=== PATIENT | female | born 1935 | race African-American/Black ===

== ENCOUNTER 2018-01-28 13:59 | Inpatient (IN) | payer OTHER ==
[~2018-01-28] VITALS: Ht 149.9 cm; Wt 46.7 kg
[~2018-01-28 13:59] MED LIST: ASPIRIN EC325 M2 PO; DOCUSATE SODIU100 M3 PO; LOSARTAN POTASS50 M1 PO; POLYETHYLENE G255 GM PO; SENOKOT8.6 M2 PO; VITAMIN B-121000 MC3 PO; VITAMIN D2000 UNIT PO
[2018-01-28 14:23] LABS: HEMATOCRIT 20.4 % (37-47); MEAN CORPUSCULAR HGB CONC 33.5 G/DL (33.0-37.0); MEAN CORPUSCULAR VOLUME 104.5 FL (81.0-99.0); MEAN PLATELET VOLUME 9.3 FL (7.4-10.4); PLATELET COUNT 240 /CUMM (130-400); RBC DISTRIBUTION WIDTH 25.2 % (11.5-14.5); RED BLOOD CELL CT 1.95 /CUMM (4.20-5.40); WHITE BLOOD CELL COUNT 2.2 /CUMM (4.8-10.8)
[2018-01-28 14:29] LABS: PT 13.2 SEC (9.4-12.5); PTT 29 SEC (25-37)
--- NOTE | 2018-01-28 14:52 | RADIOLOGY REPORT ---
EXAMINATION: PORTABLE CHEST 1 VIEW CLINICAL INFORMATION: Short of breath. COMPARISON: 01/12/2017. TECHNIQUE: Portable frontal view of the chest was obtained. FINDINGS: Lungs are hyperinflated with mild chronic appearing reticular markings again seen bilaterally. I do not appreciate any superimposed focal infiltrate, effusion, edema, or pneumothorax. Cardiac silhouette remains prominent but unchanged. Vascular calcification seen in the aorta. No acute bony abnormality. IMPRESSION: Hyperinflated with chronic appearing reticular markings similar to the prior study.
--- NOTE | 2018-01-28 15:35 | ED GENERAL ADULT ---
History of Present Illness General Chief Complaint: General Adult Stated Complaint: SENT BY FOR ABNORMAL LABS Source: patient, old records, covering MD Exam Limitations: no limitations Vital Signs & Intake/Output Vital Signs & Intake/Output Vital Signs Date Time Temp Pulse Resp B/P B/P Pulse O2 O2 Flow FiO2 Mean Ox Delivery Rate 01/31 1431 97.5 68 18 150/60 98 Room Air ED Intake and Output 02/01 0000 01/31 1200 Intake Total 10 Output Total Balance 10 Intake, IV 10 Intake, Oral 0 Patient 103 lb Weight Allergies Coded Allergies: NO KNOWN ALLERGIES (03/29/12) NKA PER ANTIBIOTIC ORDER SHEET Reconcile Medications Acetaminophen (Tylenol) (Unknown Strength) TABLET 650 PO Q6 PRN PAIN ( Reported) Aspirin (Ecotrin*) 325 MG TABLET.DR 1 TAB PO DAILY HEART/BLOOD (Reported) Docusate Sodium 100 MG CAPSULE 1 CAP PO DAILY STOOL SOFTENER (Reported) Ferrous Sulfate (IRON) 325 MG (65 MG IRON) TABLET 1 TAB PO EOD SUPPLEMENT ( Reported) Losartan Potassium 50 MG TABLET 1 TAB PO DAILY BP (Reported) Polyethylene Glycol 3350 17 GRAM/DOSE POWDER 17 GM PO PRN GI (Reported) Sennosides (Senokot) 8.6 MG TABLET 1 TAB PO DAILY GI (Reported) Triage Note: 82 YO FEMALE SENT TO ER BY FOR ABNORMAL LABS, PT AND DAUGHTER UNSURE OF WHAT LABS WERE ABNORMAL. STATES HX OF ANEMIA. PT C/O WEAKESS/LIGHTHEADED. PT DENIES CHETS PAIN. PT +SOB, PER DAUGHTER "THATS NORMAL FOR HER" Triage Nurses Notes Reviewed? yes Onset: Gradual Duration: day(s):, continues in ED, getting worse, waxing and waning Severity: severe HPI: Patient presents for evaluation of a severe anemia. Patient states that she has been suffering from weakness and fatigue recently and blood tests done by her physician showed a low blood cell count. In addition to the weakness patient has experienced shortness of breath but this isn't unusual for her. Past History Travel History Traveled to [place] past 21 day No Medical History Any Pertinent Medical History? see below for history Neurological: NONE EENT: NONE Cardiovascular: hyperlipidemia Respiratory: NONE Gastrointestinal: GERD, CONSTIPATION Hepatic: NONE Renal: NONE Musculoskeletal: OSTEOPOROSIS Psychiatric: NONE Endocrine: NONE Surgical History Surgical History: none Psychosocial History What is your primary language Kana Martinez Tobacco Use: Never used Family History Hx Contributory? No Review of Systems Review of Systems Constitutional: Reports: no symptoms. EENTM: Reports: no symptoms. Respiratory: Reports: no symptoms. Cardiovascular: Reports: no symptoms. GI: Reports: no symptoms. Genitourinary: Reports: no symptoms. Musculoskeletal: Reports: no symptoms. Skin: Reports: no symptoms. Neurological/Psychological: Reports: no symptoms. Hematologic/Endocrine: Reports: no symptoms. Immunologic/Allergic: Reports: no symptoms. All Other Systems: Reviewed and Negative Physical Exam Physical Exam General Appearance: SEE BELOW Comments: Gen.: Well-nourished, well-developed, no acute respiratory distress. Thin. Head: Normocephalic, atraumatic. Eyes: Normal inspection bilaterally Ears: Normal inspection bilaterally Nose: Normal inspection Throat/mouth : Moist mucosa Neck: Supple, full range of motion, no goiter Heart: Regular rate and rhythm, no murmurs rubs or gallops Lungs: Clear to auscultation bilaterally with normal air entry Chest: Nontender Back: Normal range of motion Abdomen: Soft, nontender, nondistended, normal bowel sounds Extremities: Normal range of motion grossly, equal radial pulses, no cyanosis clubbing or edema Neurologic: Cranial nerves grossly intact, speech is clear Skin: warm and dry Psychiatric: Calm, cooperative, no apparent delusions or hallucinations Rectal examination: Deferred given the patient's recent GI evaluation Core Measures ACS in differential dx? No CVA/TIA Diagnosis: No Sepsis Present: No Sepsis Focused Exam Completed? No Progress Differential Diagnoses I considered the following diagnoses in my evaluation of the patient: GI bleeding, dietary deficiency such as iron deficiency or B vitamin deficiency, hematologic disease, renal disease Plan of Care: Orders Procedure Date/time Status Regular Diet 01/31 D Active PT Evaluate & Treat 01/31 UNK Active Discharge Patient 01/31 UNK Active Laboratory Tests 01/31/18 1246: Flow Cytometry Specimen Pending 01/31/18 1246: Leukemic Chromosome Anal Pending, Flow Cytometry Specimen Pending Initial ED EKG: none, NSR, rate (70), NO ACUTE st SEGMENT CHANGES Prior EKG: unchanged Comments: Patient's case discussed with Dr. Coulter covering for Dr. Hall. Departure Departure Disposition: STILL A PATIENT Condition: Stable Clinical Impression Primary Impression: Anemia Qualifiers: Anemia type: unspecified type Qualified Code: D64.9 - Anemia, unspecified Referrals: Isabel GUNDERSON,Sc[facility] Haskins (PCP/Family) Departure Forms: Customer Survey General Discharge Information Admission Note Spoke With: Yfn GUNDERSON,[place] Documentation of Exam: Documentation of any treatments & extenuating circumstances including Concerns Regarding Discharge (functional status, medication knowledge or non-compliance, living conditions, etc.) that warrant an admission rather than observation: Patient has an acute anemia of unclear cause. She now requires a blood transfusion to prevent onset of symptoms such as chest pain shortness of breath easy fatigability and generalized weakness. Since the cause of this patient's anemia is unclear it is difficult to predict if she will get better or get worse even after a blood transfusion. Given her advanced age and associated medical comorbidities I feel outpatient treatment would be risky as this could exacerbate chest pain or shortness of breath given her decreased oxygen carrying capacity. I feel that she would have great difficulty in compliance with outpatient treatment and could very well return in worse clinical condition. During her hospitalization I feel this patient should be transfused with blood and have repeat H&H to assess for response. GI consultation should be considered for the possibility of an occult GI bleed. Other causes of the patient's anemia such as hematologic disease or dietary considerations such as iron deficiency should be investigated and corrected. Given this patient's age her treatment and recovery will likely be prolonged. I feel she will require a multiple day hospitalization. Critical Care Note Critical Care Note Critical Care Time: 30-74 min
[2018-01-28] MEDS ORDERED: IRON325 M3 PO (16:27)
[2018-01-28] MEDS ORDERED: TYLENOL325 M1 PO (16:28)
--- NOTE | 2018-01-28 17:37 | History & Physical ---
Kenji GUNDERSON,Ben 01/28/18 6963: General Information and HPI MD Statement: I have seen and personally examined VASU AYON and documented this H&P. The patient is a 82 year old F who presented with a patient stated chief complaint of [abnormal labs]. Source of Information: patient, family, old records Exam Limitations: language barrier History of Present Illness: Patient is an 82-year-old female with past medical history of anemia, hyperlipidemia, GERD, constipation, internal hemorrhoids, osteoporosis presenting this admission for evaluation of anemia after being sent in by her primary care physician. Patient does not speak Kosovan and her daughter was present at the time of this interview. Patient's daughter reports that patient has had a history of anemia. Reports patient has been feeling more fatigued lately and has been short of breath and lightheaded. Patient denies any chest pain. Reports numbness and tingling in her hands and feet and feeling unsteady on her feet. States that this has been ongoing for the past 3 years however daughter reports that she is just learning of this now. Denies any bright red blood per rectum, melena, hematemesis, hematuria, epistaxis. Denies easy bruising or bleeding. Patient reports poor appetite and she feels that food gets stuck in her throat and per daughter has a history of gastritis. Records reveal that patient had an EGD with Dr. Slaughter which revealed a normal gastric mucosa and small hiatal hernia. Daughter notes that they have been supplementing the patient's diet with ensure or boost and she has been taking iron supplements over the past 3 months. Of note patient has a history of internal hemorrhoids and hemorrhoidectomy in 2011. Daughter reports the patient has chronic constipation and has been alternating between multiple stool softeners. Reports patient has a history of anemia since she was young. Of note this is her first transfusion. Patient's daughter states she herself also has anemia. Reports that she was told it was due to iron deficiency. Patient patient's daughter states that her last colonoscopy was a few years ago and was reportedly normal. Patient in the ED was type and crossed and consented and given 1 PRBC transfusion. Allergies/Medications Allergies: Coded Allergies: NO KNOWN ALLERGIES (03/29/12) NKA PER ANTIBIOTIC ORDER SHEET Home Med list Acetaminophen (Tylenol) (Unknown Strength) TABLET (Unknown Dose) PO PRN PAIN (Reported) Aspirin (Ecotrin*) 325 MG TABLET.DR 1 TAB PO DAILY HEART/BLOOD (Reported) Cholecalciferol (Vitamin D3) (Vitamin D) (Unknown Strength) CAPSULE (Unknown Dose) PO DAILY SUPPLEMENT (Reported) Cyanocobalamin (Vitamin B-12) (Unknown Strength) TABLET (Unknown Dose) PO DAILY SUPPLEMENT (Reported) Docusate Sodium 100 MG CAPSULE 1 CAP PO DAILY STOOL SOFTENER (Reported) Ferrous Sulfate (IRON) 325 MG (65 MG IRON) TABLET 1 TAB PO EOD SUPPLEMENT ( Reported) Losartan Potassium 50 MG TABLET 1 TAB PO DAILY BP (Reported) Polyethylene Glycol 3350 17 GRAM/DOSE POWDER 17 GM PO PRN GI (Reported) Sennosides (Senokot) 8.6 MG TABLET 1 TAB PO DAILY GI (Reported) Past History Travel History Traveled to [place] past 21 day No Medical History Neurological: NONE EENT: NONE Cardiovascular: hyperlipidemia Respiratory: NONE Gastrointestinal: GERD, CONSTIPATION Hepatic: NONE Renal: NONE Musculoskeletal: OSTEOPOROSIS Psychiatric: NONE Endocrine: NONE Surgical History Surgical History: none Review of Systems Review of Systems Constitutional: Reports: chills, weakness. EENTM: Reports: no symptoms. Cardiovascular: Reports: no symptoms. Respiratory: Reports: short of breath. GI: Reports: bloating, constipation. Denies: abdominal pain, diarrhea, melena, nausea, bloody stool, vomiting. Genitourinary: Reports: no symptoms. Musculoskeletal: Reports: back pain. Skin: Reports: no symptoms. Neurological/Psychological: Reports: numbness, paresthesia, tingling. Hematologic/Endocrine: Reports: no symptoms. Immunologic/Allergic: Reports: no symptoms. Exam & Diagnostic Data Last 24 Hrs of Vital Signs/I&O Vital Signs Date Time Temp Pulse Resp B/P B/P Pulse O2 O2 Flow FiO2 Mean Ox Delivery Rate 01/28 1817 98.8 01/28 1757 99.0 65 16 125/59 99 Room Air 01/28 1726 97.9 65 16 132/63 98 Room Air 01/28 1404 98.2 75 18 135/67 98 Room Air Intake & Output 01/28 1600 01/28 0800 08 0000 Intake Total Output Total Balance Patient 103 lb Weight Weight Reported by Patient Measurement Method Physical Exam General Appearance Alert, Oriented X3, Cooperative, No Acute Distress Skin No Rashes, No Breakdown, No Significant Lesion Skin Temp/Moisture Exam: Warm/Dry Sepsis Skin Exam (color): Normal for Ethnicity HEENT Atraumatic, PERRLA, EOMI, Mucous Membr. moist/pink, +conjunctival pallor Cardiovascular Regular Rate, Normal S1, Normal S2 Lungs Clear to Auscultation, Normal Air Movement Abdomen Normal Bowel Sounds, Soft, No Tenderness Neurological Normal Speech, Strength at 5/5 X4 Ext, Normal Tone, Sensation Intact, Cranial Nerves 3-12 NL Extremities No Clubbing, No Cyanosis, No Edema, Normal Pulses, No Tenderness/ Swelling Vascular Normal Pulses, Pulses Symmetrical Last 24 Hrs of Labs/Froylan: Laboratory Tests 01/28/18 1411: Anion Gap 6, Estimated GFR > 60, BUN/Creatinine Ratio 18.0, Glucose 88, Calcium 9.3, Total Bilirubin 1.2, AST 25, ALT 30, Alkaline Phosphatase 29, Troponin I < 0.01, Total Protein 6.8, Albumin 4.2, Globulin 2.6, Albumin/Globulin Ratio 1.6, PT 13.2 H, INR 1.21 H, APTT 29, CBC w Diff MAN DIFF ORDERED, RBC 1.95 L, MCV 104.5 H, MCH 35.0 H, MCHC 33.5, RDW 25.2 H, MPV 9.3, Segmented Neutrophils 46 , Band Neutrophils 2, Lymphocytes 40, Monocytes 7, Eosinophils 3, Basophils 2, Platelet Estimate VERIFIED BY SMEAR, Polychromasia 1+, Hypochromic-Microcytic 2+ , Poikilocytosis 1+, Basophilic Stippling 1+, Anisocytosis 2+, Macrocytic Cells 1+, Ovalocytes 1+ Assessment/Plan Assessment: Patient is an 82-year-old female with past medical history significant for anemia and internal hemorrhoids presenting this admission with abnormal lab values significant for anemia. The etiology is unclear at this time however may be multifactorial and may include iron deficiency anemia secondary to GI bleeding, malabsorption, nutritional deficiency. Patient's labs reveal macrocytic anemia which is indicative of possible folic acid or B12 deficiency. Of note patient does have some neurological symptoms including paresthesias and gait instability. Further evaluation and treatment is warranted at this time. Patient will be admitted to the general medicine floor. Plan: Admit to general med Vitals every shift 1 PRBC transfusion Monitor H&H with posttransfusion CBC today and CBC in a.m. Guaiac all stools Iron panel B12 and folate Peripheral smear Consider GI consult in a.m. Nutrition consult Code: Full code Diet: Regular DVT: Mechanical only in setting of severe anemia As Ranked By This Provider Problem List: 1. Anemia Qualifiers Anemia type: unspecified type Qualified Code: D64.9 - Anemia, unspecified Core Measures/Misc (03/12) Acute Coronary Syndrome ACS Diagnosis: No Congestive Heart Failure Congestive Heart Failure Diagnosis No Cerebrovascular Accident CVA/TIA Diagnosis: No VTE (View Protocol) VTE Risk Factors Age>40 No Mechanical VTE Prophylaxis d/t N/A MechProphylax Ordered No VTE Pharm Prophylaxis d/t Other (Severe Anemia) Sepsis (View protocol) Sepsis Present: No If YES complete Sepsis Event Note If YES complete Sepsis Event Note Isabel GUNDERSON,[facility] 01/29/18 1023: Core Measures/Misc (03/12) Sepsis (View protocol) If YES complete Sepsis Event Note If YES complete Sepsis Event Note Attending MD Review Statement Attending Statement Attending MD Statement: examined this patient, discuss w/resident/PA/HOUSE WIRER HELPER, agreed w/resident/PA/HOUSE WIRER HELPER, discussed with family, reviewed EMR data (avail), discussed with nursing, discussed with case mgmt, reviewed images, amended to note Attending Assessment/Plan: Pt with Esophageal dysmotility Osteoporosis s/p boniva for more than 5 yrs now on vit d and calcium and wt bearing activity, Gastroesophageal reflux disease without esophagitis, Hyperlipidemia, unspecified on diet control does not want statin, Irritable bowel syndrome with both constipation and diarrhea, Vitamin D deficiency, Essential hypertension, Cervical arthritis, Hyperlipidemia, unspecified on diet control does not want statin, Irritable bowel syndrome with both constipation and diarrhea, Lung nodule less than 5 mm non smoker hence prob benign pt wishes clinical follow up, Venous insufficiency (chronic) (peripheral) rt more than left, Hemorrhoids, Primary osteoarthritis of both hips with chronic anemia now comes with Sig symptomatic anemia Wt loss chronic with ibs features Chronic constipation now had no bm for 5 day, hemerroids Fatigue Gait imbalance with peripheral neuropathy features with no sig vit def Previous lung nodule and pelvic gonadal vein congestion (will consider ct abd) REC GI eval and Heme eval Please call Dr. Hairston Rectal exam Dulcolax supp, miralax, today and if no bm can consider one dose of lactulose Head ct with recent gait imbalance etc Ct abd and pelvis with ivc to eval for any malignancy Will follow
[2018-01-28 22:01] VITALS: BP 120/60
[2018-01-29 02:52] VITALS: BP 118/52
[2018-01-29 03:43] LABS: ABSOLUTE BASOPHIL COUNT 0 /CUMM (0.0-0.2); ABSOLUTE EOSINOPHIL COUNT 0.1 /CUMM (0.0-0.7); ABSOLUTE GRANULOCYTE CT 1.2 /CUMM (1.4-6.5); WHITE BLOOD CELL COUNT 2.8 /CUMM (4.8-10.8)
[2018-01-29 04:51] LABS: ABSOLUTE LYMPH COUNT 1.2 /CUMM (1.2-3.4); ABSOLUTE MONOCYTE COUNT 0.3 /CUMM (0.10-0.60); BASOPHIL % 0 % (0.0-2.0); EOSINOPHIL % 2.4 % (0-5); GRANULOCYTE % 43.3 % (42.2-75.2); MEAN CORPUSCULAR HGB CONC 33.3 G/DL (33.0-37.0); MEAN PLATELET VOLUME 8.4 FL (7.4-10.4); PLATELET COUNT 190 /CUMM (130-400); RBC DISTRIBUTION WIDTH 27.9 % (11.5-14.5)
[2018-01-29 04:58] LABS: RED BLOOD CELL CT 2.75 /CUMM (4.20-5.40)
[2018-01-29 04:59] LABS: HEMATOCRIT 26.4 % (37-47)
[2018-01-29 07:17] VITALS: BP 128/60
--- NOTE | 2018-01-29 08:16 | PN- Housestaff ---
Kamran Toure 01/29/18 0812: Subjective Follow-up For: Normocytic normochromic anemia, Lower GI bleed secondary to hemorrhoid Complaints: no complaints Subjective: Patient seen and examined on chair. There was no overnight event. No distress. She did well overnight. There was no bowel movement. There is no history of any blood loss. He is optimistic to go home today. She denies weakness tiredness, fever chill, chest pain, shortness of breath, abdominal pain, diarrhea, loose motion. Review of Systems Constitutional: Reports: see HPI. Objective Last 24 Hrs of Vital Signs/I&O Vital Signs Date Time Temp Pulse Resp B/P B/P Pulse O2 O2 Flow FiO2 Mean Ox Delivery Rate 01/29 0717 98.0 58 20 128/60 99 Room Air 01/29 0252 98.1 62 20 118/52 96 Nasal 2.0L Cannula 01/28 2201 98.0 63 18 120/60 98 Room Air / 1817 98.8 01/28 1757 99.0 65 16 125/59 99 Room Air 01/28 1726 97.9 65 16 132/63 98 Room Air 01/28 1404 98.2 75 18 135/67 98 Room Air Intake & Output 01/29 1600 /06 0800 08/ 0000 Intake Total 120 600 Output Total 1000 300 Balance -1000 -180 600 Intake, Oral 120 600 Output, Urine 1000 300 Patient 103 lb Weight Physical Exam General Appearance: Oriented X3, Cooperative, No Acute Distress Assessment/Plan Assessment: 82-year-old lady with past medical history of esophageal dysmotility, osteoporosis status post Boniva for more than 5 years, GERD, hyperlipidemia, irritable bowel syndrome with both constipation and diarrhea, cervical arthritis , vitamin D deficiency, essential hypertension, 5 mm lung nodules, external hemorrhoid, primary osteoarthritis of both hips, anemia of chronic disease presented to the emergency department with complaint of weakness and tiredness. On examination she was pallor, [place]ber[place] and Liza nodules on his both hands fingers. Her labs are significant for low H&H at the time of presentation at was 6.8/20.4 up to 2 blood transfusion his Hb is 8.8, decreased WBC count, INR is normal, saturation is normal on 2 L of oxygen, B12 and folate level is normal .vitally stable. Problems list: -Normocytic normochromic anemia now -External hemorrhoids -Peripheral neuropathy irritable bowel syndrome with constipation -Hemotological malignancy Plan: -She currently has normochromic normocytic anemia. But patient is taking B12 and folate and she also having peripheral neuropathy this reflects she might had macrocytic anemia due to B12 or folate deficiency because her MCV is on her upper limit of the normal. 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 We can consider myelodysplastic syndrome and can do workup for after discussing with law researcher. -This anemia may be due to chronic disease because she having many comorbidities. Her previous colonoscopy 5 year back were normal. There was no focus of bleed. -GI consult placed -On on rectal exam there was no blood and there was no stool, there was external hemorrhoid but there was no focus of active bleed. -Hematology consultation placed. Waiting for product management consultant. -Head CT ordered -CT abdomen and pelvis IVC for evaluation of any malignancy ordered -GI/DVT prophylaxis -Advance diet -Patient conseled. -Case discussed with law researcher he assured that he will see patient tomorrow and he think that he would work for myelodysplastic syndrome. Problem List: 1. Dizziness 2. Anemia Pain Ratin Pain Location: N/A Pain Goal: Remain pain free Pain Plan: N/A Tomorrow's Labs & Rationales: MARKO Hall MD,[facility] 01/29/18 1033: Attending MD Review Statement Attending Statement Attending MD Statement: examined this patient, discuss w/resident/PA/DELIVERY COORDINATOR, agreed w/resident/PA/DELIVERY COORDINATOR, discussed with family, reviewed EMR data (avail), discussed with nursing, discussed with case mgmt, reviewed images, amended to note Attending Assessment/Plan: Full note per dope house operator helper General Appearance Alert, Oriented X3, Cooperative, No Acute Distress Skin No Rashes, No Breakdown, No Significant Lesion Skin Temp/Moisture Exam: Warm/Dry Sepsis Skin Exam (color): Normal for Ethnicity HEENT Atraumatic, PERRLA, EOMI, Mucous Membr. moist/pink, +conjunctival pallor Cardiovascular Regular Rate, Normal S1, Normal S2 Lungs Clear to Auscultation, Normal Air Movement Abdomen Normal Bowel Sounds, Soft, No Tenderness Neurological Normal Speech, Strength at 5/5 X4 Ext, Normal Tone, Sensation Intact, Cranial Nerves 3-12 NL Extremities No Clubbing, No Cyanosis, No Edema, Normal Pulses, No Tenderness/ Swelling Vascular Normal Pulses, Pulses Symmetrical Pt with Esophageal dysmotility Osteoporosis s/p boniva for more than 5 yrs now on vit d and calcium and wt bearing activity, Gastroesophageal reflux disease without esophagitis, Hyperlipidemia, unspecified on diet control does not want statin, Irritable bowel syndrome with both constipation and diarrhea, Vitamin D deficiency, Essential hypertension, Cervical arthritis, Hyperlipidemia, unspecified on diet control does not want statin, Irritable bowel syndrome with both constipation and diarrhea, Lung nodule less than 5 mm non smoker hence prob benign pt wishes clinical follow up, Venous insufficiency (chronic) (peripheral) rt more than left, Hemorrhoids, Primary osteoarthritis of both hips with chronic anemia now comes with Sig symptomatic anemia Wt loss chronic with ibs features Chronic constipation now had no bm for 5 day, hemerroids Fatigue Gait imbalance with peripheral neuropathy features with no sig vit def Previous lung nodule and pelvic gonadal vein congestion (will consider ct abd) REC GI eval and Heme eval Please call Dr. Hairston Rectal exam Dulcolax supp, miralax, today and if no bm can consider one dose of lactulose Head ct with recent gait imbalance etc Ct abd and pelvis with ivc to eval for any malignancy Will follow
[2018-01-29 13:59] VITALS: BP 100/60
--- NOTE | 2018-01-29 15:56 | CT SCAN REPORT ---
EXAMINATION: CT HEAD WITHOUT AND WITH CONTRAST CLINICAL INFORMATION: Gait imbalance. History of lung mass and weight loss. Assess for mass versus NPH versus cortical atrophy. COMPARISON: None. TECHNIQUE: Contiguous axial imaging was performed from the skull base to vertex before and after the administration of 95 mL of Optiray 320 intravenous contrast. DLP: 1094.62 mGy-cm FINDINGS: There is no evidence of acute intracranial hemorrhage or territorial infarction. No abnormal mass effect or midline shift is seen. Coughlin to white matter differentiation is well preserved. No extra-axial fluid collections are identified. No masses or abnormal enhancement are demonstrated. There have been bilateral lens extractions.. The ventricles and sulci commensurately prominent consistent with moderate diffuse volume loss. There are areas of low attenuation in the periventricular and subcortical white matter, consistent with chronic microvascular ischemic changes. The osseous structures and soft tissues are normal. The mastoid air cells and visualized portions of the paranasal sinuses are well aerated. IMPRESSION: 1. There are no acute bleeds or territorial infarcts. 2. There are no masses or areas of abnormal enhancement. 3. There are chronic microvascular ischemic changes. There is diffuse volume loss.
--- NOTE | 2018-01-29 17:09 | CT SCAN REPORT ---
EXAMINATION: CT ABDOMEN AND PELVIS WITH CONTRAST CLINICAL INFORMATION: Weight loss. Previous lung nodule. COMPARISON: Abdomen ultrasound, 06/06/2013. Abdomen and pelvis CT, 04/12/2013 TECHNIQUE: Multidetector volumetric imaging was performed of the abdomen and pelvis following IV administration of 95 mL of Optiray 320 intravenous contrast. Sagittal and coronal reformatted images were obtained on the technologist's workstation. DLP: 253 mGy-cm FINDINGS: LUNG BASES: Cardiomegaly. Trace bilateral pleural effusions and mild bibasilar atelectasis. LIVER, GALLBLADDER, AND BILIARY TREE: Liver has normal size and contour. No focal hepatic lesion or intrahepatic bile duct dilatation. Intrahepatic IVC is dilated and hepatic veins are prominent, likely from elevated right-sided cardiac pressures. The gallbladder is unremarkable. PANCREAS: Unremarkable. SPLEEN: Unremarkable. ADRENAL GLANDS: Unremarkable. KIDNEYS AND URETERS: The kidneys are normal in size, shape, and attenuation. Small, 0.5 cm hypodense focus in the medial aspect of the left upper pole is likely a cyst but is too small for definitive characterization. No suspicious renal lesion, nephrolithiasis or hydronephrosis. BLADDER: The urinary bladder is well distended and has normal wall thickness. No bladder calculi. GASTROINTESTINAL TRACT: Stomach is unremarkable. Bowel loops are normal in caliber. No inflammation or obstruction along the gastrointestinal tract. No ascites or pneumoperitoneum. ABDOMINAL WALL: Unremarkable. LYMPH NODES: Normal. VASCULAR: Atherosclerosis of the abdominal aorta without aneurysm. Inferior vena cava and hepatic veins are prominent, likely from elevated right-sided cardiac pressures. Gonadal veins and parauterine veins are chronically dilated, consistent with venous valve incompetence. PELVIC VISCERA: The uterus is retroflexed. Prominent myometrial veins are seen. Trace amount of free fluid in the pelvic cul-de-sac. No pelvic mass. Multiple phleboliths within the lower pelvis. OSSEOUS STRUCTURES: Mild dextroscoliosis of the lumbar spine. Facet osteoarthritis of L4-L5 and L5-S1, and vacuum disc degenerative change at L5-S1. There is 0.4 cm of grade 1 anterolisthesis of L4 on L5. No suspicious bone lesions. IMPRESSION: - Cardiomegaly, trace bilateral pleural effusions and engorged inferior vena cava and hepatic veins (likely from elevated right-sided cardiac pressures. - No evidence of abdominal mass or lymphadenopathy. - Chronically dilated gonadal and parauterine veins -- indicative of venous valve incompetence.
--- NOTE | 2018-01-29 17:22 | Cons- Gastroenterology ---
General Information and HPI Consulting Request Date of Consult: 01/29/18 Requested By: oLndon Coulter MD Reason for Consult: Anemia. Constipation. Dysphagia. Source of Information: patient Exam Limitations: language barrier History of Present Illness: Ms. Garcia is an 82 year old female with a PMH significant for hyperlipidemia and osteoporosis who presented to yesterday after being sent in by her PCP for a transfusion after being noted to have a hgb of about 6.8 on routine blood work. Her daughter is at her bedside who was able to help with her history. She is without any GI complatins. She denies any abdominal pain with eating, heartburn or current dysphagia. She is also without any vomiting or hematemesis. She is constipated at baseline and this hasn't changed recently. She has been without any brbpr, melena or diarrhea. In the ER she was hemodynamically stable and afebrile. She was noted to have a macrocytic anemia for which she was tranfused with 2 units of PRBCs with approprite correction of her hgb and she had a ct scan of her abdomen that was negative for any obvious masses or a retroperitoneal hematoma. Since admission she has been hemodynamically stable and without overt GI bleeding. Allergies/Medications Allergies: Coded Allergies: NO KNOWN ALLERGIES (03/29/12) NKA PER ANTIBIOTIC ORDER SHEET Home Med List: Acetaminophen (Tylenol) (Unknown Strength) TABLET 650 PO Q6 PRN PAIN ( Reported) Aspirin (Ecotrin*) 325 MG TABLET.DR 1 TAB PO DAILY HEART/BLOOD (Reported) Docusate Sodium 100 MG CAPSULE 1 CAP PO DAILY STOOL SOFTENER (Reported) Ferrous Sulfate (IRON) 325 MG (65 MG IRON) TABLET 1 TAB PO EOD SUPPLEMENT ( Reported) Losartan Potassium 50 MG TABLET 1 TAB PO DAILY BP (Reported) Polyethylene Glycol 3350 17 GRAM/DOSE POWDER 17 GM PO PRN GI (Reported) Sennosides (Senokot) 8.6 MG TABLET 1 TAB PO DAILY GI (Reported) Current Medications: Current Medications Sig/Stephen Start time Last Medication Dose Route Stop Time Status Admin Acetaminophen 650 MG Q6P PRN 01/28 193 AC PO Acetaminophen 700 MG Q6P PRN 01/28 193 AC IV Bisacodyl 10 MG ONCE ONE 01/29 1215 DC 01/29 AR 01/29 1216 1302 Patient Medication 1 ED ONE ONE 01/29 1200 DC 01/29 Teaching ED 01/29 1201 1204 Polyethylene Glycol 17 GM DAILY 01/29 1208 AC PO Past History Travel History Traveled to [place] past 21 day No Medical History Blood Transfusion Hx: No Neurological: NONE EENT: NONE Cardiovascular: hyperlipidemia Respiratory: NONE Gastrointestinal: GERD, CONSTIPATION Hepatic: NONE Renal: NONE Musculoskeletal: OSTEOPOROSIS Psychiatric: NONE Endocrine: NONE Blood Disorders: anemia Cancer(s): NONE SILVERER/Reproductive: NONE Surgical History Surgical History: 1 Psychosocial History Where Do You Live? Home Services at Home: None Smoking Status: Never Smoked Review of Systems Review of Systems: Secondary to a lagnuage barrier a full 12 point review of systems was not obtained. Exam & Diagnostic Data Vital Signs and I&O Vital Signs Date Time Temp Pulse Resp B/P B/P Pulse O2 O2 Flow FiO2 Mean Ox Delivery Rate 01/29 0717 98.0 58 20 128/60 99 Room Air 01/29 0252 98.1 62 20 118/52 96 Nasal 2.0L Cannula 01/28 2201 98.0 63 18 120/60 98 Room Air 01/28 1817 98.8 01/28 1757 99.0 65 16 125/59 99 Room Air 01/28 1726 97.9 65 16 132/63 98 Room Air 01/28 1404 98.2 75 18 135/67 98 Room Air Intake & Output 01/29 1600 01/29 0400 01/28 1600 01/28 0400 01/27 1600 01/27 0400 Intake Total 120 600 Output Total 1300 Balance -1180 600 Intake, Oral 120 600 Output, Urine 1300 Patient 103 lb 103 lb Weight Weight Reported by Patient Measurement Method Physical Exam General Appearance: no apparent distress, alert, awake, comfortable, thin Head: atraumatic, normal appearance Eyes: Bilateral: normal appearance. Ears, Nose, Throat: normal pharynx, normal ENT inspection Neck: normal inspection, supple, full range of motion Respiratory: normal breath sounds, chest non-tender Cardiovascular: regular rate/rhythm Gastrointestinal: normal bowel sounds, soft, non-tender, no organomegaly Rectal: deferred Back: normal inspection Extremities: normal inspection, normal capillary refill, normal range of motion Neurologic/Psych: no motor/sensory deficits, awake, alert, oriented x 3 Skin: intact, normal color, warm/dry Results Pertinent Lab Results: Laboratory Tests 08/06 08/06 0600 0325 Chemistry Sodium (137 - 145 mmol/L) Cancelled 136 L Potassium (3.5 - 5.1 mmol/L) Cancelled 4.4 Chloride (98 - 107 mmol/L) Cancelled 104 Carbon Dioxide (22 - 30 mmol/L) Cancelled 30 Anion Gap (5 - 16) Cancelled 2 L BUN (7 - 17 mg/dL) Cancelled 11 Creatinine (0.5 - 1.0 mg/dL) Cancelled 0.5 Estimated GFR (>60 ml/min) > 60 BUN/Creatinine Ratio (7 - 25 %) Cancelled 22.0 Hematology CBC w Diff Cancelled MAN DIFF ORDERED WBC (4.8 - 10.8 /CUMM) Cancelled 2.8 L RBC (4.20 - 5.40 /CUMM) Cancelled 2.75 L Hgb (12.0 - 16.0 G/DL) Cancelled 8.8 L Hct (37 - 47 %) Cancelled 26.4 L MCV (81.0 - 99.0 FL) Cancelled 96.0 MCH (27.0 - 31.0 PG) Cancelled 32.0 H MCHC (33.0 - 37.0 G/DL) Cancelled 33.3 RDW (11.5 - 14.5 %) Cancelled 27.9 H Plt Count (130 - 400 /CUMM) Cancelled 190 MPV (7.4 - 10.4 FL) Cancelled 8.4 Gran % (42.2 - 75.2 %) 43.3 Lymphocytes % (20.5 - 51.1 %) 44.5 Monocytes % (1.7 - 9.3 %) 9.8 H Eosinophils % (0 - 5 %) 2.4 Basophils % (0.0 - 2.0 %) 0 Absolute Granulocytes (1.4 - 6.5 /CUMM) 1.2 L Absolute Lymphocytes (1.2 - 3.4 /CUMM) 1.2 Absolute Monocytes (0.10 - 0.60 /CUMM) 0.3 Absolute Eosinophils (0.0 - 0.7 /CUMM) 0.1 Absolute Basophils (0.0 - 0.2 /CUMM) 0 Platelet Estimate (ADEQUATE) ADEQUATE Polychromasia 1+ Hypochromic-Microcytic 1+ Anisocytosis 1+ 01/29 01/28 01/28 0000 2355 1411 Chemistry Sodium (137 - 145 mmol/L) 138 Potassium (3.5 - 5.1 mmol/L) 4.1 Chloride (98 - 107 mmol/L) 103 Carbon Dioxide (22 - 30 mmol/L) 29 Anion Gap (5 - 16) 6 BUN (7 - 17 mg/dL) 9 Creatinine (0.5 - 1.0 mg/dL) 0.5 Estimated GFR (>60 ml/min) > 60 BUN/Creatinine Ratio (7 - 25 %) 18.0 Glucose (65 - 99 mg/dL) 88 Calcium (8.4 - 10.2 mg/dL) 9.3 Iron (37 - 170 ug/dL) 266 H TIBC (265 - 497 ug/dL) 301 Ferritin (11.1 - 264 ng/mL) 167.0 Total Bilirubin (0.2 - 1.3 mg/dL) 1.2 AST (14 - 36 U/L) 25 ALT (9 - 52 U/L) 30 Alkaline Phosphatase (<127 U/L) 29 Lactate Dehydrogenase (313 - 618 U/L) 563 Troponin I (< 0.11 ng/ml) < 0.01 Total Protein (6.3 - 8.2 g/dL) 6.8 Albumin (3.5 - 5.0 g/dL) 4.2 Globulin (1.9 - 4.2 gm/dL) 2.6 Albumin/Globulin Ratio (1.1 - 2.2 %) 1.6 Vitamin B12 (239 - 931 pg/mL) > 1000 H Folate (2.76 - 20.0 ng/mL) > 20.0 H Coagulation PT (9.4 - 12.5 SEC) 13.2 H INR (0.90 - 1.19) 1.21 H APTT (25 - 37 SEC) 29 Hematology CBC w Diff Cancelled Cancelled MAN DIFF ORDERED WBC (4.8 - 10.8 /CUMM) Cancelled Cancelled 2.2 L RBC (4.20 - 5.40 /CUMM) Cancelled Cancelled 1.95 L Hgb (12.0 - 16.0 G/DL) Cancelled Cancelled 6.8 *L Hct (37 - 47 %) Cancelled Cancelled 20.4 L MCV (81.0 - 99.0 FL) Cancelled Cancelled 104.5 H MCH (27.0 - 31.0 PG) Cancelled Cancelled 35.0 H MCHC (33.0 - 37.0 G/DL) Cancelled Cancelled 33.5 RDW (11.5 - 14.5 %) Cancelled Cancelled 25.2 H Plt Count (130 - 400 /CUMM) Cancelled Cancelled 240 MPV (7.4 - 10.4 FL) Cancelled Cancelled 9.3 Segmented Neutrophils (42.2 - 75.2 %) 46 Band Neutrophils (0.0 - 5.0 %) 2 Lymphocytes (20.5 - 51.1 %) 40 Monocytes (1.7 - 9.3 %) 7 Eosinophils (0 - 5.0 %) 3 Basophils (0.0 - 2.0 %) 2 Platelet Estimate (ADEQUATE) VERIFIED BY SMEAR Polychromasia 1+ Hypochromic-Microcytic 2+ Poikilocytosis 1+ Basophilic Stippling 1+ Anisocytosis 2+ Macrocytic Cells 1+ Ovalocytes 1+ Retic Count (0.5 - 2.0 %) 1.67 Miscellaneous Ref Lab Test Result Cancelled 01/28 1404 Hematology Haptoglobin Pending Imaging/Other Studies: DATE OF SERVICE: 07/17/2012 PROCEDURE: Upper endoscopy with biopsies. CYBER SECURITY INSTRUCTOR: Dr. Oseas Slaughter. ASA: Class II. INDICATIONS: Dysphagia. MEDICATIONS RECEIVED: As per anesthesiologist. PATIENT TOLERANCE: Good. COMPLICATIONS: None. EXTENT REAWCHED: Second portion of the duodenum. PROCEDURE: After getting written informed consent the patient was placed in the left lateral decubitus position with pulse oximetry, cardiac monitoring, and supplemental oxygen given. A bite block was inserted and IV sedation was given until the desired effect was achieved. A high definition upper Olympus endoscope was then inserted into the mouth and advanced to the second portion of the duodenum with little difficulty. Retroflexed views and photo documentation were obtained. FINDINGS: Esophagus: The esophageal mucosa was grossly normal in appearance. There was a normal-appearing Z-line at 36 cm from the incisors. There were no esophageal strictures, erosions or masses appreciated. Random biopsies were obtained from the Z-line and from the lower esophageal mucosa with the cold biopsy forceps and sent to pathology for further evaluation. Stomach: The gastric mucosa was grossly normal in appearance. Distension and peristalsis of the stomach appeared normal. There were no ulcers, erosions or masses appreciated. Retroflexed views revealed a small hiatal hernia. Biopsies were obtained from the antrum with the cold biopsy forceps and sent to pathology for further evaluation. Duodenum: The duodenal bulb, sweep and folds were grossly normal in appearance. IMPRESSION: Small hiatal hernia. Normal GE junction and esophageal mucosa, status post random biopsies. Normal gastric mucosa, status post biopsies. SERVICE DATE: 01/29/18- EXAM TYPE: CAT - CT ABD & PELVIS W IV CONTRAST EXAMINATION: CT ABDOMEN AND PELVIS WITH CONTRAST CLINICAL INFORMATION: Weight loss. Previous lung nodule. COMPARISON: Abdomen ultrasound, 06/06/2013. Abdomen and pelvis CT, 04/12/2013 TECHNIQUE: Multidetector volumetric imaging was performed of the abdomen and pelvis following IV administration of 95 mL of Optiray 320 intravenous contrast. Sagittal and coronal reformatted images were obtained on the technologist's workstation. DLP: 253 mGy-cm FINDINGS: LUNG BASES: Cardiomegaly. Trace bilateral pleural effusions and mild bibasilar atelectasis. LIVER, GALLBLADDER, AND BILIARY TREE: Liver has normal size and contour. No focal hepatic lesion or intrahepatic bile duct dilatation. Intrahepatic IVC is dilated and hepatic veins are prominent, likely from elevated right-sided cardiac pressures. The gallbladder is unremarkable. PANCREAS: Unremarkable. SPLEEN: Unremarkable. ADRENAL GLANDS: Unremarkable. KIDNEYS AND URETERS: The kidneys are normal in size, shape, and attenuation. Small, 0.5 cm hypodense focus in the medial aspect of the left upper pole is likely a cyst but is too small for definitive characterization. No suspicious renal lesion, nephrolithiasis or hydronephrosis. BLADDER: The urinary bladder is well distended and has normal wall thickness. No bladder calculi. GASTROINTESTINAL TRACT: Stomach is unremarkable. Bowel loops are normal in caliber. No inflammation or obstruction along the gastrointestinal tract. No ascites or pneumoperitoneum. ABDOMINAL WALL: Unremarkable. LYMPH NODES: Normal. VASCULAR: Atherosclerosis of the abdominal aorta without aneurysm. Inferior vena cava and hepatic veins are prominent, likely from elevated right-sided cardiac pressures. Gonadal veins and parauterine veins are chronically dilated, consistent with venous valve incompetence. PELVIC VISCERA: The uterus is retroflexed. Prominent myometrial veins are seen. Trace amount of free fluid in the pelvic cul-de-sac. No pelvic mass. Multiple phleboliths within the lower pelvis. OSSEOUS STRUCTURES: Mild dextroscoliosis of the lumbar spine. Facet osteoarthritis of L4-L5 and L5-S1, and vacuum disc degenerative change at L5-S1. There is 0.4 cm of grade 1 anterolisthesis of L4 on L5. No suspicious bone lesions. IMPRESSION: - Cardiomegaly, trace bilateral pleural effusions and engorged inferior vena cava and hepatic veins (likely from elevated right-sided cardiac pressures. - No evidence of abdominal mass or lymphadenopathy. - Chronically dilated gonadal and parauterine veins -- indicative of venous valve incompetence. Assessment/Plan Assessment/Recommendations: Assessment: Ms. Garcia is an 82 year old female admitted with a hgb of 6.8 of uncertain etiology, but she is without overt GI bleeding and she also isn't iron deficient or b12 or folate deficient on lab work. She also had a ct scan of her abdomen and pelvis which didn't reveal and bowel wall abnormalities or obvious masses within her bowel or stomach which makes a GI source of anemia less likely when taken in conjunction with the lab work. She had an endoscopy about 5 years ago which was done for dysphagia she had at that time which only showed a hiatal hernia and was otherwise unremarkable and while it may ultimately be necessary to repeat this along with repeating a colonoscopy which she apparently hasn't had in over 10 years I don't feel that either test needs to be pursued as an inpatient considering she is without any overt gi bleeding. As she is not iron deficient though and is currently being evaluated by hematology it may not be necessary to repeat at all if her anemia is deemed to be secondary to in infiltrative bone marrow process. Recommendations: 1. Diet as tolerated. 2. Follow daily CBC and if hgb remains stable would consider discharge in the am with plan to pursue a repeat endosocpic work up as an outpatient if the hematological work up is negative. 3. Follow up haptoglobin and hematology recommendations. 4. Notify GI for signs of overt GI bleeding. As she has no acute GI issues which require inpatient work up I will sign off at this time and ask that GI be reconsulte with any new GI issues which may arise on this hospitalization. Problem List: 1. Anemia 2. Dizziness Copies To: Isabel GUNDERSON,Scout Arora. Consult Acknowledgment - Thank you for your consult request.
[2018-01-29 21:45] VITALS: BP 126/76
[2018-01-30 06:20] VITALS: BP 146/68
--- NOTE | 2018-01-30 07:28 | Cons- Hematology ---
General Information and HPI Consulting Request Date of Consult: 01/30/18 Requested By: Isabel GUNDERSON,Scout Haskins Reason for Consult: anemia, leukopenia Source of Information: patient, family, old records Exam Limitations: language barrier History of Present Illness: Ms. Garcia is an 82-year-old Lao speaking female with osteoporosis, GERD, and anemia who presented to the hospital with anemia. She was seen by her primary care physician and was noted to have severe anemia and was sent to the emergency department. The patient does not speak Beninese and her daughter acts as the deaf interpreter. She has been feeling more fatigue and tired recently. She has some shortness of breath and dyspnea. She has some unsteadiness. She does have some presyncopal episodes. She denies any chest pain. She does not have any significant shortness of breath. She denies any blood in stool or urine. She denies any bruising or bleeding. She does not have any epistaxis or hemoptysis. She does have history of internal hemorrhoids and had hemorrhoidectomy in 2011. she did previously have endoscopy with Dr. Slaughter which demonstrated gastritis. She does have history of constipation. On presentation, her blood work demonstrated WBC of 2200, hemoglobin of 6.8, hematocrit of 20.4, MCV of 104.5, and platelet count of 148581. She was normotensive and hemodynamically stable. Her kidney function and liver function are within normal limits. Total bilirubin was normal at 1.2. Her serum iron was 266 with a TIBC of 301. Ferritin was 167. Her vitamin B12 was greater than 1000. Ferritin was greater than 20. Her reticulocyte count was 1.67%. She was given 2 units of packed RBC with improvement in her hemoglobin to 8.8 with hematocrit of 26.4. She underwent a CT scan of the abdomen pelvis without any significant findings. This morning she feels about the same. She denies any new symptoms. The blood transfusion did make her feel slightly better. Allergies/Medications Allergies: Coded Allergies: NO KNOWN ALLERGIES (03/29/12) NKA PER ANTIBIOTIC ORDER SHEET Home Med List: Acetaminophen (Tylenol) (Unknown Strength) TABLET (Unknown Dose) PO PRN PAIN (Reported) Aspirin (Ecotrin*) 325 MG TABLET.DR 1 TAB PO DAILY HEART/BLOOD (Reported) Cholecalciferol (Vitamin D3) (Vitamin D) (Unknown Strength) CAPSULE (Unknown Dose) PO DAILY SUPPLEMENT (Reported) Cyanocobalamin (Vitamin B-12) (Unknown Strength) TABLET (Unknown Dose) PO DAILY SUPPLEMENT (Reported) Docusate Sodium 100 MG CAPSULE 1 CAP PO DAILY STOOL SOFTENER (Reported) Ferrous Sulfate (IRON) 325 MG (65 MG IRON) TABLET 1 TAB PO EOD SUPPLEMENT ( Reported) Losartan Potassium 50 MG TABLET 1 TAB PO DAILY BP (Reported) Polyethylene Glycol 3350 17 GRAM/DOSE POWDER 17 GM PO PRN GI (Reported) Sennosides (Senokot) 8.6 MG TABLET 1 TAB PO DAILY GI (Reported) Current Medications: Current Medications Sig/Stephen Start time Last Medication Dose Route Stop Time Status Admin Acetaminophen 650 MG Q6P PRN 01/28 193 AC PO Acetaminophen 700 MG Q6P PRN 01/28 193 AC IV Bisacodyl 10 MG ONCE ONE 01/29 1215 DC 01/29 FL 01/29 1216 1302 Patient Medication 1 ED ONE ONE 01/29 1200 DC 01/29 Teaching ED 01/29 1201 1204 Polyethylene Glycol 17 GM DAILY 01/29 1208 AC 01/29 PO 1601 Review of Systems Review of Systems Constitutional: Reports: weakness. Denies: chills, fever, unexplained weight loss. EENTM: Denies: blurred vision, double vision. Cardiovascular: Reports: syncope. Denies: chest pain. Respiratory: Denies: short of breath. GI: Reports: constipation. Denies: melena, nausea, bloody stool, vomiting. Musculoskeletal: Denies: back pain. Neurological/Psychological: Denies: anxiety, dementia. Hematologic/Endocrine: Denies: bruising, bleeding. Immunologic/Allergic: Denies: lymphadenopathy. All Other Systems: Reviewed and Negative Past History Travel History Traveled to [place] past 21 day No Medical History Blood Transfusion Hx: No Neurological: NONE EENT: NONE Cardiovascular: hyperlipidemia Respiratory: NONE Gastrointestinal: GERD, CONSTIPATION Hepatic: NONE Renal: NONE Musculoskeletal: OSTEOPOROSIS Psychiatric: NONE Endocrine: NONE Blood Disorders: anemia Cancer(s): NONE INSPECTOR/Reproductive: NONE Surgical History Surgical History: 1 Psychosocial History Where Do You Live? Home Services at Home: None Smoking Status: Never Smoked Exam & Diagnostic Data Vital Signs and I&O Vital Signs Date Time Temp Pulse Resp B/P B/P Pulse O2 O2 Flow FiO2 Mean Ox Delivery Rate 01/30 0620 98.0 83 18 146/68 98 Room Air 08/07 0000 Room Air 01/29 2145 98.3 50 16 126/76 97 Room Air 01/29 1359 99.7 62 20 100/60 100 Room Air Intake & Output 01/30 0800 01/30 0000 01/29 1600 Intake Total 360 600 560 Output Total 1200 Balance 360 600 -640 Intake, IV 10 Intake, Oral 360 600 550 Number 0 Bowel Movements Output, Urine 1200 Physical Exam General Appearance: well developed/nourished, no apparent distress, alert, awake , comfortable, thin Head: atraumatic, normal appearance Eyes: Bilateral: PERRL, EOMI. Ears, Nose, Throat: normal pharynx Neck: supple Respiratory: normal breath sounds, chest non-tender, no respiratory distress, quiet respiration Cardiovascular: regular rate/rhythm Gastrointestinal: normal bowel sounds, soft, non-tender, no organomegaly Extremities: no edema Neurologic/Psych: awake, alert, oriented x 3 Skin: intact, normal color, warm/dry Lymphatic: no anterior cervical deven Last 48 Hours of Lab Results: Laboratory Tests 01/29 01/29 0600 0325 Chemistry Sodium (137 - 145 mmol/L) Cancelled 136 L Potassium (3.5 - 5.1 mmol/L) Cancelled 4.4 Chloride (98 - 107 mmol/L) Cancelled 104 Carbon Dioxide (22 - 30 mmol/L) Cancelled 30 Anion Gap (5 - 16) Cancelled 2 L BUN (7 - 17 mg/dL) Cancelled 11 Creatinine (0.5 - 1.0 mg/dL) Cancelled 0.5 Estimated GFR (>60 ml/min) > 60 BUN/Creatinine Ratio (7 - 25 %) Cancelled 22.0 Hematology CBC w Diff Cancelled MAN DIFF ORDERED WBC (4.8 - 10.8 /CUMM) Cancelled 2.8 L RBC (4.20 - 5.40 /CUMM) Cancelled 2.75 L Hgb (12.0 - 16.0 G/DL) Cancelled 8.8 L Hct (37 - 47 %) Cancelled 26.4 L MCV (81.0 - 99.0 FL) Cancelled 96.0 MCH (27.0 - 31.0 PG) Cancelled 32.0 H MCHC (33.0 - 37.0 G/DL) Cancelled 33.3 RDW (11.5 - 14.5 %) Cancelled 27.9 H Plt Count (130 - 400 /CUMM) Cancelled 190 MPV (7.4 - 10.4 FL) Cancelled 8.4 Gran % (42.2 - 75.2 %) 43.3 Lymphocytes % (20.5 - 51.1 %) 44.5 Monocytes % (1.7 - 9.3 %) 9.8 H Eosinophils % (0 - 5 %) 2.4 Basophils % (0.0 - 2.0 %) 0 Absolute Granulocytes (1.4 - 6.5 /CUMM) 1.2 L Absolute Lymphocytes (1.2 - 3.4 /CUMM) 1.2 Absolute Monocytes (0.10 - 0.60 /CUMM) 0.3 Absolute Eosinophils (0.0 - 0.7 /CUMM) 0.1 Absolute Basophils (0.0 - 0.2 /CUMM) 0 Platelet Estimate (ADEQUATE) ADEQUATE Polychromasia 1+ Hypochromic-Microcytic 1+ Anisocytosis 1+ 01/29 01/28 01/28 0000 2355 2107 Hematology CBC w Diff Cancelled Cancelled WBC Cancelled Cancelled RBC Cancelled Cancelled Hgb Cancelled Cancelled Hct Cancelled Cancelled MCV Cancelled Cancelled MCH Cancelled Cancelled MCHC Cancelled Cancelled RDW Cancelled Cancelled Plt Count Cancelled Cancelled MPV Cancelled Cancelled Urines Urine Color Cancelled Urine Clarity Cancelled Urine pH Cancelled Ur Specific Osseo Cancelled Urine Protein Cancelled Urine Ketones Cancelled Urine Nitrite Cancelled Urine Bilirubin Cancelled Urine Urobilinogen Cancelled Ur Leukocyte Esterase Cancelled Ur Microscopic Cancelled Urine Hemoglobin Cancelled Urine Glucose Cancelled 01/28 01/28 1411 1404 Chemistry Sodium (137 - 145 mmol/L) 138 Potassium (3.5 - 5.1 mmol/L) 4.1 Chloride (98 - 107 mmol/L) 103 Carbon Dioxide (22 - 30 mmol/L) 29 Anion Gap (5 - 16) 6 BUN (7 - 17 mg/dL) 9 Creatinine (0.5 - 1.0 mg/dL) 0.5 Estimated GFR (>60 ml/min) > 60 BUN/Creatinine Ratio (7 - 25 %) 18.0 Glucose (65 - 99 mg/dL) 88 Calcium (8.4 - 10.2 mg/dL) 9.3 Iron (37 - 170 ug/dL) 266 H TIBC (265 - 497 ug/dL) 301 Ferritin (11.1 - 264 ng/mL) 167.0 Total Bilirubin (0.2 - 1.3 mg/dL) 1.2 AST (14 - 36 U/L) 25 ALT (9 - 52 U/L) 30 Alkaline Phosphatase (<127 U/L) 29 Lactate Dehydrogenase (313 - 618 U/L) 563 Troponin I (< 0.11 ng/ml) < 0.01 Total Protein (6.3 - 8.2 g/dL) 6.8 Albumin (3.5 - 5.0 g/dL) 4.2 Globulin (1.9 - 4.2 gm/dL) 2.6 Albumin/Globulin Ratio (1.1 - 2.2 %) 1.6 Vitamin B12 (239 - 931 pg/mL) > 1000 H Folate (2.76 - 20.0 ng/mL) > 20.0 H Coagulation PT (9.4 - 12.5 SEC) 13.2 H INR (0.90 - 1.19) 1.21 H APTT (25 - 37 SEC) 29 Hematology CBC w Diff MAN DIFF ORDERED WBC (4.8 - 10.8 /CUMM) 2.2 L RBC (4.20 - 5.40 /CUMM) 1.95 L Hgb (12.0 - 16.0 G/DL) 6.8 *L Hct (37 - 47 %) 20.4 L MCV (81.0 - 99.0 FL) 104.5 H MCH (27.0 - 31.0 PG) 35.0 H MCHC (33.0 - 37.0 G/DL) 33.5 RDW (11.5 - 14.5 %) 25.2 H Plt Count (130 - 400 /CUMM) 240 MPV (7.4 - 10.4 FL) 9.3 Segmented Neutrophils (42.2 - 75.2 %) 46 Band Neutrophils (0.0 - 5.0 %) 2 Lymphocytes (20.5 - 51.1 %) 40 Monocytes (1.7 - 9.3 %) 7 Eosinophils (0 - 5.0 %) 3 Basophils (0.0 - 2.0 %) 2 Platelet Estimate (ADEQUATE) VERIFIED BY SMEAR Polychromasia 1+ Hypochromic-Microcytic 2+ Poikilocytosis 1+ Basophilic Stippling 1+ Anisocytosis 2+ Macrocytic Cells 1+ Ovalocytes 1+ Retic Count (0.5 - 2.0 %) 1.67 Haptoglobin Pending Miscellaneous Ref Lab Test Result Cancelled Imaging/Other Studies: CT ABDOMEN/PELVIS WITH CONTRAST 01/29/2018: LUNG BASES: Cardiomegaly. Trace bilateral pleural effusions and mild bibasilar atelectasis. LIVER, GALLBLADDER, AND BILIARY TREE: Liver has normal size and contour. No focal hepatic lesion or intrahepatic bile duct dilatation. Intrahepatic IVC is dilated and hepatic veins are prominent, likely from elevated right-sided cardiac pressures. The gallbladder is unremarkable. PANCREAS: Unremarkable. SPLEEN: Unremarkable. ADRENAL GLANDS: Unremarkable. KIDNEYS AND URETERS: The kidneys are normal in size, shape, and attenuation. Small, 0.5 cm hypodense focus in the medial aspect of the left upper pole is likely a cyst but is too small for definitive characterization. No suspicious renal lesion, nephrolithiasis or hydronephrosis. BLADDER: The urinary bladder is well distended and has normal wall thickness. No bladder calculi. GASTROINTESTINAL TRACT: Stomach is unremarkable. Bowel loops are normal in caliber. No inflammation or obstruction along the gastrointestinal tract. No ascites or pneumoperitoneum. ABDOMINAL WALL: Unremarkable. LYMPH NODES: Normal. VASCULAR: Atherosclerosis of the abdominal aorta without aneurysm. Inferior vena cava and hepatic veins are prominent, likely from elevated right-sided cardiac pressures. Gonadal veins and parauterine veins are chronically dilated, consistent with venous valve incompetence. PELVIC VISCERA: The uterus is retroflexed. Prominent myometrial veins are seen. Trace amount of free fluid in the pelvic cul-de-sac. No pelvic mass. Multiple phleboliths within the lower pelvis. OSSEOUS STRUCTURES: Mild dextroscoliosis of the lumbar spine. Facet osteoarthritis of L4-L5 and L5-S1, and vacuum disc degenerative change at L5-S1. There is 0.4 cm of grade 1 anterolisthesis of L4 on L5. No suspicious bone lesions. IMPRESSION: - Cardiomegaly, trace bilateral pleural effusions and engorged inferior vena cava and hepatic veins (likely from elevated right-sided cardiac pressures. - No evidence of abdominal mass or lymphadenopathy. - Chronically dilated gonadal and parauterine veins - indicative of venous valve incompetence. Assessment/Plan Assessment: Ms. Garcia is an 82-year-old Lao speaking female with osteoporosis, GERD, and anemia who presented to the hospital with anemia. She was seen by her primary care physician and was noted to have severe anemia and was sent to the emergency department. The patient does not speak Beninese and her daughter acts as the deaf interpreter. On presentation, she had no obvious gastrointestinal bleeding. Her blood work demonstrated leukopenia with a WBC of 2200 and severe anemia with hemoglobin of 6.8 and hematocrit of 20.4. Iron study was normal. Vitamin B12 and folate level were normal. She is on B12 and folate supplementsHer reticulocyte count is normal but low relative to her anemia. She has no kidney dysfunction. She has no liver dysfunction. Bilirubin was normal. She did improve with 2 units of packed RBC. Peripheral blood smear demonstrated multiple abnormalities in the RBC morphology. On review of her past medical records and blood work, she has intermittent leukopenia since at least 2010. She has anemia since at least 2009. given her chronic anemia and leukopenia, it is concerning for potential underlying marrow infiltrative process. 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 She has no obvious evidence of plasma cell neoplasm. She has no evidence of lymphoma. To further workup, she may undergo flow cytometry of her peripheral blood and bone marrow biopsy. If she has not been checked, HIV and hepatitis should be evaluated. Recommendations: Cytopenia: -flow cytometry -bone marrow biopsy -if not checked recently, hepatitis and HIV -transfused with packed RBC if hemoglobin less than 8 -follow up as outpatient Problem List: 1. Cytopenia 2. Symptomatic anemia Other Findings/Comments: Please call [phone] with any questions or concerns. Consult Acknowledgment - Thank you for your consult request.
--- NOTE | 2018-01-30 07:32 | PN- Housestaff ---
Subjective Follow-up For: Normocytic anemia, bicytopenias, weakness. Complaints: Weakness and somtime feel dizzy. No bowel movements since two days Subjective: Patient seen and examined at bed. He is comfortable with no acute distress. There was no overnight event. He did well last night. She complaining of constipation, feel a little bit dizzy. This may be due to low H&H. She denies headache, history of fall, chest pain, palpitation, cough, diarrhea, burning micturition. Review of Systems Constitutional: Reports: see HPI. Objective Last 24 Hrs of Vital Signs/I&O Vital Signs Date Time Temp Pulse Resp B/P B/P Pulse O2 O2 Flow FiO2 Mean Ox Delivery Rate 01/30 0620 98.0 83 18 146/68 98 Room Air 01/30 0000 Room Air 01/29 2145 98.3 50 16 126/76 97 Room Air 01/29 1359 99.7 62 20 100/60 100 Room Air Intake & Output 01/30 0800 / 0000 01/29 1600 Intake Total 360 600 560 Output Total 1200 Balance 360 600 -640 Intake, IV 10 Intake, Oral 360 600 550 Number 0 Bowel Movements Output, Urine 1200 Physical Exam General Appearance: Alert, Oriented X3, Cooperative, No Acute Distress Cardiovascular: Normal S1, Normal S2 Lungs: Clear to Auscultation, Normal Air Movement Assessment/Plan Assessment: Assessment/Plan/Problems list; 82-year-old lady with past medical history of esophageal dysmotility, osteoporosis status post Boniva for more than 5 years, GERD, hyperlipidemia, irritable bowel syndrome with both constipation and diarrhea, cervical arthritis , vitamin D deficiency, essential hypertension, 5 mm lung nodules, external hemorrhoid, primary osteoarthritis of both hips, anemia of chronic disease presented to the emergency department with complaint of weakness and tiredness. On examination she was pallor, Heberden and Liza nodules on his both hands fingers. Her labs are significant for low H&H at the time of presentation at was 6.8/20.4 up to 2 blood transfusion his Hb is 8.8, decreased WBC count, INR is normal, saturation is normal on 2 L of oxygen, B12 and folate level is normal .vitally stable. Problems list: -Anemia/bicytopenia -Decreased reticulocyte count -External hemorrhoids -Peripheral neuropathy irritable, -bowel syndrome with constipation -Hemotological malignancy? Workup is awaited. Plan: -She currently has normochromic anemia. But patient is taking B12 and folate and she also having peripheral neuropathy. 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 We can consider one of the differential myelodysplastic syndrome beacuase her her leukopenia is since long. -Pump Erector recommended bone marrow biopsy, flow cytometry for 5Q mutation, -Patient will be NPO from midnight for anticipated bone marrow biopsy tomorrow. -This anemia may be due to chronic disease because she having many comorbidities. Her previous colonoscopy 5 year back were normal. There was no focus of bleed. -GI consult placed -On on rectal exam there was no blood and there was no stool, there was external hemorrhoid but there was no focus of active bleed. -CT abdomen and pelvis IVC for evaluation of any malignancy was ordered was negative for any mass, or any another abnormality which can lead to bicytopenias -GI/DVT prophylaxis -Advance diet -Patient conseled. - Problem List: 1. Anemia 2. Cytopenia 3. Symptomatic anemia Pain Ratin Pain Location: n/a Pain Goal: Remain pain free Pain Plan: n/a Tomorrow's Labs & Rationales: n/a
[2018-01-30 08:39] LABS: ABSOLUTE BASOPHIL COUNT 0 /CUMM (0.0-0.2); ABSOLUTE EOSINOPHIL COUNT 0.1 /CUMM (0.0-0.7); ABSOLUTE LYMPH COUNT 0.8 /CUMM (1.2-3.4); BASOPHIL % 0 % (0.0-2.0); MEAN PLATELET VOLUME 8.5 FL (7.4-10.4)
[2018-01-30 08:57] LABS: ABSOLUTE MONOCYTE COUNT 0.3 /CUMM (0.10-0.60); EOSINOPHIL % 3.2 % (0-5); GRANULOCYTE % 61.2 % (42.2-75.2); MEAN CORPUSCULAR HGB 32.3 PG (27.0-31.0); MEAN CORPUSCULAR HGB CONC 33.5 G/DL (33.0-37.0); MEAN CORPUSCULAR VOLUME 96.3 FL (81.0-99.0); PLATELET COUNT 220 /CUMM (130-400); RBC DISTRIBUTION WIDTH 26.7 % (11.5-14.5); RED BLOOD CELL CT 3.27 /CUMM (4.20-5.40); WHITE BLOOD CELL COUNT 3.2 /CUMM (4.8-10.8)
[2018-01-30 09:22] LABS: HEMATOCRIT 31.5 % (37-47)
--- NOTE | 2018-01-30 10:17 | PN- Pulmonary ---
Subjective HPI/Critical Care Issues: Patient seen and examined at bed. He is comfortable with no acute distress. There was no overnight event. He did well last night. She complaining of constipation, feel a little bit dizzy. This may be due to low H&H. She denies headache, history of fall, chest pain, palpitation, cough, diarrhea, burning micturition. Objective Current Medications: Current Medications Sig/Stephen Start time Last Medication Dose Route Stop Time Status Admin Acetaminophen 650 MG Q6P PRN 01/28 1930 AC PO Acetaminophen 700 MG Q6P PRN 01/28 1930 AC IV Bisacodyl 10 MG ONCE ONE 01/29 1215 DC 01/29 HI 01/29 1216 1302 Patient Medication 1 ED ONE ONE 01/29 1200 DC 01/29 Teaching ED 01/29 1201 1204 Polyethylene Glycol 17 GM DAILY 01/29 1208 AC 01/30 PO 0830 Vital Signs & I&O Last 24 Hrs of Vitals and I&O: Vital Signs Date Time Temp Pulse Resp B/P B/P Pulse O2 O2 Flow FiO2 Mean Ox Delivery Rate 01/31 620 98.0 83 18 146/68 98 Room Air 01/30 0000 Room Air 01/29 2145 98.3 50 16 126/76 97 Room Air 01/29 1359 99.7 62 20 100/60 100 Room Air Intake & Output 01/30 1600 01/30 0800 01/30 0000 Intake Total 360 600 Output Total Balance 360 600 Intake, Oral 360 600 Impression/Plan Impression/Plan Impression/Plan: General Appearance Alert, Oriented X3, Cooperative, No Acute Distress Skin No Rashes, No Breakdown, No Significant Lesion Skin Temp/Moisture Exam: Warm/Dry Sepsis Skin Exam (color): Normal for Ethnicity HEENT Atraumatic, PERRLA, EOMI, Mucous Membr. moist/pink, +conjunctival pallor Cardiovascular Regular Rate, Normal S1, Normal S2 Lungs Clear to Auscultation, Normal Air Movement Abdomen Normal Bowel Sounds, Soft, No Tenderness Neurological Normal Speech, Strength at 5/5 X4 Ext, Normal Tone, Sensation Intact, Cranial Nerves 3-12 NL Extremities No Clubbing, No Cyanosis, No Edema, Normal Pulses, No Tenderness/ Swelling Vascular Normal Pulses, Pulses Symmetrical Pt with Esophageal dysmotility Osteoporosis s/p boniva for more than 5 yrs now on vit d and calcium and wt bearing activity, Gastroesophageal reflux disease without esophagitis, Hyperlipidemia, unspecified on diet control does not want statin, Irritable bowel syndrome with both constipation and diarrhea, Vitamin D deficiency, Essential hypertension, Cervical arthritis, Hyperlipidemia, unspecified on diet control does not want statin, Irritable bowel syndrome with both constipation and diarrhea, Lung nodule less than 5 mm non smoker hence prob benign pt wishes clinical follow up, Venous insufficiency (chronic) (peripheral) rt more than left, Hemorrhoids, Primary osteoarthritis of both hips with chronic anemia now comes with Sig symptomatic anemia prob due to Bone marrow dysfunction r/o mds Wt loss chronic with ibs features Chronic constipation now had no bm for 6 day, hemerroids Fatigue Gait imbalance with peripheral neuropathy features with no sig vit def Previous lung nodule and pelvic gonadal vein congestion, Ct abd and pelvis nil acute Sig 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
[2018-01-30 14:00] VITALS: BP 132/70
[2018-01-30 22:17] VITALS: BP 120/62
[2018-01-31 06:20] VITALS: BP 146/68
--- NOTE | 2018-01-31 07:24 | PN- Hematology ---
Subjective Subjective: Her daughter is acting as her denitrator. She is feeling okay. She denies any new symptoms. Review of Systems Constitutional: Denies: chills, fever. Cardiovascular: Denies: chest pain. Gastrointestinal: Denies: abdominal pain. Skin: Denies: rash. Neurological/Psychological: Denies: confusion. Hematologic/Endocrine: Denies: bruising, bleeding. All Other Systems: Reviewed and Negative Objective Vital Signs and I&Os Vital Signs Date Time Temp Pulse Resp B/P B/P Pulse O2 O2 Flow FiO2 Mean Ox Delivery Rate 02/01 620 98.1 59 16 146/68 96 Room Air 01/30 2217 98.4 61 18 120/62 97 01/30 1400 98.3 69 20 132/70 98 Room Air Intake & Output 01/31 0000 01/30 1600 01/30 0800 01/30 0000 01/29 1600 Intake Total 10 250 400 360 600 560 Output Total 1200 Balance 10 250 400 360 600 -640 Intake, IV 10 10 10 Intake, Oral 0 240 400 360 600 550 Number 0 Bowel Movements Output, Urine 1200 Physical Exam: General Appearance: well developed/nourished, no apparent distress, alert, awake , comfortable, thin Head: atraumatic, normal appearance Eyes: Bilateral: PERRL, EOMI. Respiratory: normal breath sounds, chest non-tender, no respiratory distress, quiet respiration Cardiovascular: regular rate/rhythm Gastrointestinal: normal bowel sounds, soft, non-tender, no organomegaly Extremities: no edema Neurologic/Psych: awake, alert, oriented x 3 Skin: intact, normal color, warm/dry Current Medications: Current Medications Sig/Stephen Start time Last Medication Dose Route Stop Time Status Admin Acetaminophen 650 MG Q6P PRN 01/28 1930 AC PO Acetaminophen 700 MG Q6P PRN 01/28 1930 AC IV Polyethylene Glycol 17 GM DAILY 01/29 1208 AC 01/30 PO 0830 Results Last 24 Hours of Lab Results: Laboratory Tests 01/30 750 Hematology CBC w Diff MAN DIFF ORDERED WBC (4.8 - 10.8 /CUMM) 3.2 L RBC (4.20 - 5.40 /CUMM) 3.27 L Hgb (12.0 - 16.0 G/DL) 10.6 L Hct (37 - 47 %) 31.5 L MCV (81.0 - 99.0 FL) 96.3 MCH (27.0 - 31.0 PG) 32.3 H MCHC (33.0 - 37.0 G/DL) 33.5 RDW (11.5 - 14.5 %) 26.7 H Plt Count (130 - 400 /CUMM) 220 MPV (7.4 - 10.4 FL) 8.5 Gran % (42.2 - 75.2 %) 61.2 Lymphocytes % (20.5 - 51.1 %) 25.8 Monocytes % (1.7 - 9.3 %) 9.8 H Eosinophils % (0 - 5 %) 3.2 Basophils % (0.0 - 2.0 %) 0 Absolute Granulocytes (1.4 - 6.5 /CUMM) 2.0 Segmented Neutrophils (42.2 - 75.2 %) 56 Band Neutrophils (0.0 - 5.0 %) 6 H Absolute Lymphocytes (1.2 - 3.4 /CUMM) 0.8 L Lymphocytes (20.5 - 51.1 %) 31 Monocytes (1.7 - 9.3 %) 6 Absolute Monocytes (0.10 - 0.60 /CUMM) 0.3 Eosinophils (0 - 5.0 %) 1 Absolute Eosinophils (0.0 - 0.7 /CUMM) 0.1 Absolute Basophils (0.0 - 0.2 /CUMM) 0 Nucleated RBCs (0.0 - 0.0 /100WBC) 1 H Platelet Estimate (ADEQUATE) ADEQUATE Poikilocytosis FEW Basophilic Stippling RARE Anisocytosis 1+ Assessment/Plan Hematology Assessment/Recommendations: Ms. Garcia is an 82-year-old female with osteoporosis, GERD, and anemia who presented to the hospital with anemia. She was seen by her primary care physician and was noted to have severe anemia and was sent to the emergency department. The patient does not speak Mosotho and her daughter acts as the denitrator. On presentation, she was leukopenic and anemic. She responded well to 2 units of pRBC transfusion. Hemoglobin is 10.6 yesterday. WBC is 3,200 yesterday. Iron study was normal. Vitamin B12 and folate level were normal. She is on B12 and folate supplementsHer reticulocyte count is normal but low relative to her anemia. She has no kidney dysfunction. She has no liver dysfunction. Bilirubin was normal. HIV and hepatitis were negative. She has intermittent leukopenia since at least 2010. She has anemia since at least 2009. She likely has an underlying marrow infiltrative process. She will need bone marrow biopsy. This may be done inpatient or outpatient. Differential includes MDS, nutritional deficiency, infectious, and other marrow infiltrative process. She will need follow up as outpatient. Cytopenia: -follow up flow cytometry -bone marrow biopsy: if done inpatient, send for cytogenetics in addition to normal evaluation for MDS; may be done as outpatient -transfused with packed RBC if hemoglobin less than 8 -follow up as outpatient Please call [phone] with any questions or concerns. Problem List: 1. Cytopenia 2. Symptomatic anemia
--- NOTE | 2018-01-31 08:40 | PN- Housestaff ---
Subjective Follow-up For: Anemia, bicytopenia's, Complaints: no complaints Subjective: Patient seen and examined at bedside. He was in no acute distress. There was no events overnight. She is NPO for expected bone marrow biopsy today. The family agreed for this procedure. She denies weakness, dizziness, headache, chest pain, palpitation, shortness of breath, abdominal pain, diarrhea, burning micturition. Review of Systems Constitutional: Reports: see HPI. Objective Last 24 Hrs of Vital Signs/I&O Vital Signs Date Time Temp Pulse Resp B/P B/P Pulse O2 O2 Flow FiO2 Mean Ox Delivery Rate 02/01 620 98.1 59 16 146/68 96 Room Air 01/30 2217 98.4 61 18 120/62 97 01/30 1400 98.3 69 20 132/70 98 Room Air Intake & Output 01/31 1600 01/31 0800 01/31 0000 Intake Total 10 250 Output Total Balance 10 250 Intake, IV 10 10 Intake, Oral 0 240 Patient 103 lb Weight Physical Exam General Appearance: Oriented X3, Cooperative, No Acute Distress Assessment/Plan Assessment: Assessment/Plan/Problems list; 82-year-old lady with past medical history of esophageal dysmotility, osteoporosis status post Boniva for more than 5 years, GERD, hyperlipidemia, irritable bowel syndrome with both constipation and diarrhea, cervical arthritis , vitamin D deficiency, essential hypertension, 5 mm lung nodules, external hemorrhoid, primary osteoarthritis of both hips, anemia of chronic disease presented to the emergency department with complaint of weakness and tiredness. On examination she was pallor, Heber[place] and Liza nodules on his both hands fingers. Her labs are significant for low H&H at the time of presentation at was 6.8/20.4 up to 2 blood transfusion his Hb is 8.8, decreased WBC count since 2010, INR is normal, saturation is normal on 2 L of oxygen, B12 and folate level is normal .vitally stable. Problems list: -Anemia/bicytopenia -Decreased reticulocyte count -External hemorrhoids -Peripheral neuropathy irritable, -bowel syndrome with constipation -Hemotological malignancy? Workup is awaited. Plan: Anemia/pancytopenia's: -She currently has normochromic anemia. But patient is taking B12 and folate and she also having peripheral neuropathy. Her Hb level is 10.6 and WBC is 3.2. This anemia may be due to chronic disease because she having many comorbidities -Hematological malignancy; -Because the patient had a bicytopenia and his reticulocyte count is low. We can consider one of the differential myelodysplastic syndrome beacuase her her leukopenia is since long. -Digital Forensic Analyst recommended bone marrow biopsy, flow cytometry/cytogenetic study for mutation. He also a added procedure can be done as outpatient as well. -Patient is be NPO from midnight for anticipated bone marrow biopsy today. GI bleed: colonoscopy 5 year back were normal. There was no focus of bleed. -GI consult placed -On on rectal exam there was no blood and there was no stool, there was external hemorrhoid but there was no focus of active bleed. Occult abdominal and pelvic malignancy: -CT abdomen and pelvis IVC for evaluation of any malignancy was ordered was negative for any mass, or any another abnormality which can lead to bicytopenias -GI/DVT prophylaxis -Advance diet after biopsy -Patient conseled. -Anticipated discharge today. -Patient should follow up with Haematologist -Follow up with PCP. Problem List: 1. Dizziness 2. Anemia 3. Symptomatic anemia 4. Cytopenia Pain Ratin Pain Location: N/A Pain Goal: Remain pain free Pain Plan: N/A Tomorrow's Labs & Rationales: CBC
--- NOTE | 2018-01-31 13:18 | PN- Pulmonary ---
Subjective HPI/Critical Care Issues: Patient seen and examined at bedside. He was in no acute distress. There was no events overnight. For bone marrow bx today Objective Current Medications: Current Medications Sig/Stephen Start time Last Medication Dose Route Stop Time Status Admin Acetaminophen 650 MG Q6P PRN 01/28 1930 AC PO Acetaminophen 700 MG Q6P PRN 01/28 1930 AC IV Bisacodyl 10 MG ONCE ONE 01/31 1000 DC VA 01/31 1001 Bupivacaine HCl 0 .STK-MED ONE 01/31 1222 DC .ROUTE Fentanyl Citrate 0 .STK-MED ONE 01/31 1135 DC .ROUTE Midazolam HCl 0 .STK-MED ONE 01/31 1135 DC .ROUTE Polyethylene Glycol 17 GM DAILY 01/29 1208 AC 01/30 PO 0830 Vital Signs & I&O Last 24 Hrs of Vitals and I&O: Vital Signs Date Time Temp Pulse Resp B/P B/P Pulse O2 O2 Flow FiO2 Mean Ox Delivery Rate 01/31 0620 98.1 59 16 146/68 96 Room Air 01/30 2217 98.4 61 18 120/62 97 01/30 1400 98.3 69 20 132/70 98 Room Air Intake & Output 01/31 1600 01/31 0800 01/31 0000 Intake Total 10 250 Output Total Balance 10 250 Intake, IV 10 10 Intake, Oral 0 240 Patient 103 lb Weight Laboratory Tests 01/31 01/30 1246 0750 Hematology CBC w Diff MAN DIFF ORDERED WBC (4.8 - 10.8 /CUMM) 3.2 L RBC (4.20 - 5.40 /CUMM) 3.27 L Hgb (12.0 - 16.0 G/DL) 10.6 L Hct (37 - 47 %) 31.5 L MCV (81.0 - 99.0 FL) 96.3 MCH (27.0 - 31.0 PG) 32.3 H MCHC (33.0 - 37.0 G/DL) 33.5 RDW (11.5 - 14.5 %) 26.7 H Plt Count (130 - 400 /CUMM) 220 MPV (7.4 - 10.4 FL) 8.5 Gran % (42.2 - 75.2 %) 61.2 Lymphocytes % (20.5 - 51.1 %) 25.8 Monocytes % (1.7 - 9.3 %) 9.8 H Eosinophils % (0 - 5 %) 3.2 Basophils % (0.0 - 2.0 %) 0 Absolute Granulocytes (1.4 - 6.5 /CUMM) 2.0 Segmented Neutrophils (42.2 - 75.2 %) 56 Band Neutrophils (0.0 - 5.0 %) 6 H Absolute Lymphocytes (1.2 - 3.4 /CUMM) 0.8 L Lymphocytes (20.5 - 51.1 %) 31 Monocytes (1.7 - 9.3 %) 6 Absolute Monocytes (0.10 - 0.60 /CUMM) 0.3 Eosinophils (0 - 5.0 %) 1 Absolute Eosinophils (0.0 - 0.7 /CUMM) 0.1 Absolute Basophils (0.0 - 0.2 /CUMM) 0 Nucleated RBCs (0.0 - 0.0 /100WBC) 1 H Platelet Estimate (ADEQUATE) ADEQUATE Poikilocytosis FEW Basophilic Stippling RARE Anisocytosis 1+ Miscellaneous Leukemic Chromosome Anal Pending Flow Cytometry Specimen Pending Impression/Plan Impression/Plan Impression/Plan: General Appearance Alert, Oriented X3, Cooperative, No Acute Distress Skin No Rashes, No Breakdown, No Significant Lesion Skin Temp/Moisture Exam: Warm/Dry Sepsis Skin Exam (color): Normal for Ethnicity HEENT Atraumatic, PERRLA, EOMI, Mucous Membr. moist/pink, +conjunctival pallor Cardiovascular Regular Rate, Normal S1, Normal S2 Lungs Clear to Auscultation, Normal Air Movement Abdomen Normal Bowel Sounds, Soft, No Tenderness Neurological Normal Speech, Strength at 5/5 X4 Ext, Normal Tone, Sensation Intact, Cranial Nerves 3-12 NL Extremities No Clubbing, No Cyanosis, No Edema, Normal Pulses, No Tenderness/ Swelling Vascular Normal Pulses, Pulses Symmetrical Pt with Esophageal dysmotility Osteoporosis s/p boniva for more than 5 yrs now on vit d and calcium and wt bearing activity, Gastroesophageal reflux disease without esophagitis, Hyperlipidemia, unspecified on diet control does not want statin, Irritable bowel syndrome with both constipation and diarrhea, Vitamin D deficiency, Essential hypertension, Cervical arthritis, Hyperlipidemia, unspecified on diet control does not want statin, Irritable bowel syndrome with both constipation and diarrhea, Lung nodule less than 5 mm non smoker hence prob benign pt wishes clinical follow up, Venous insufficiency (chronic) (peripheral) rt more than left, Hemorrhoids, Primary osteoarthritis of both hips with chronic anemia now comes with Sig symptomatic anemia prob due to Bone marrow dysfunction r/o mds Wt loss chronic with ibs features Chronic constipation now had no bm for 6 days, hemerroids Fatigue Gait imbalance with peripheral neuropathy features with no sig vit def Previous lung nodule and pelvic gonadal vein congestion, Ct abd and pelvis nil acute Sig 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
[2018-01-31 14:31] VITALS: BP 150/60
--- NOTE | 2018-01-31 15:54 | Patient Discharge Instructions ---
Discharge Instructions General Discharge Information You were seen/treated for: Anemia You had these procedures: Bone marrow biopsy Special Instructions: Please seek medical attention if your develop chest pain or dizziness/or shortness of breath Please follow up with your primary care within 1 week Please follow up Dr Zabala (Hematology) regarding your bone marrow biopsy results and workup for your anemia Acute Coronary Syndrome Inclusion Criteria At DC or during hospital stay patient has or had the following: ACS DIAGNOSIS No Discharge Core Measures Meds if any: Prescribed or Continued at Discharge Meds if any: NOT Prescribed or Continued at Discharge Congestive Heart Failure Inclusion Criteria At DC or during hospital stay patient has or had the following: CHF DIAGNOSIS No Discharge Core Measures Meds if any: Prescribed or Continued at Discharge Meds if any: NOT Prescribed or Continued at Discharge Cerebrovascular accident Inclusion Criteria At DC or during hospital stay patient has or had the following: CVA/TIA Diagnosis No Discharge Core Measures Meds if any: Prescribed or Continued at Discharge Meds if any: NOT Prescribed or Continued at Discharge Venous thromboembolism Inclusion Criteria VTE Diagnosis No VTE Type NONE VTE Confirmed by (Test) NONE Discharge Core Measures - Per Current guidelines, there needs to be overlap - treatment for the first 5 days of Warfarin therapy. - If discharged on Warfarin prior to 5 days of - overlap therapy, the patient will need to be - assessed for post discharge needs including - *Post discharge parental anticoagulation - *Warfarin and/or parental anticoagulation education - *Follow up date to check INR post discharge At least 5 days overlap therapy as Inpatient No Meds if any: Prescribed or Continued at Discharge Note: Overlap Therapy is Warfarin and Anticoagulant Meds if any: NOT Prescribed or Continued at Discharge
--- NOTE | 2018-01-31 17:04 | CT SCAN REPORT ---
PROCEDURE: CT GUIDED BONE MARROW ASPIRATE AND BONE MARROW BIOPSY CLINICAL INFORMATION: 82-year-old patient with a medical history of myelodysplastic syndrome, now presenting with anemia and leukopenia. Bone marrow aspirate and core bone biopsy requested for further evaluation including exclusion of malignant conversion. COMPARISON: CT of the abdomen and pelvis dated 01/29/2018. PILOT CAN ROUTER: Zain Henriquez M.D. DESCRIPTION: The procedure was requested by Kamran Toure M.D. Informed consent was obtained from the patient through a Setswana-Creole rag shredder prior to the procedure. During this process, which occurred via telephone, the procedure and potential alternatives was explained, along with the intended outcome and benefits. The risks of the procedure, as well as the risk of not doing the procedure, were discussed. The patient was given the opportunity to ask questions regarding the procedure and appeared competent to make medical decisions. A signed consent form which documents this discussion was placed in the medical record. The patient was brought to the CT suite and a final timeout procedure was performed. Moderate sedation was induced under my direction and supervision using Versed and fentanyl. The patient was continuously monitored by a independent, registered nurse. At no time was there evidence of instability. The patient was placed in the CT gantry in the prone position. Second Rigger sections were obtained through the pelvis with a grid on the lower back for localization of the left posterior iliac crest. The overlying soft tissues were sterilely prepped and draped. Maximum sterile barrier technique was maintained throughout the procedure. Following administration of superficial and deep anesthesia down to the periosteum using 1% lidocaine and 0.5% bupivacaine, an 11-gauge, 10 cm length access needle was introduced to the left posterior iliac tuberosity under CT fluoroscopic guidance. The SeeControl power handle was activated to drive the access needle forward penetrating the outer cortex. Approximately 10 mL of bone marrow was aspirated and divided between a green top tube with heparin/sodium chloride and a purple top tube with EDTA. The 13-gauge biopsy needle was then introduced coaxially and three 1 cm core bone biopsy was obtained. One core was sent in RPMI solution and 2 cores were submitted to pathology in buffered formalin. The specimens were submitted to the laboratory for flow cytometry, cytogenetics, and histopathology. The patient tolerated the procedure well. Scans after the biopsy did not show evidence of a hemorrhage or other complication. The patient was observed in the recovery area and subsequently transferred to her hospital room in stable condition. ESTIMATED RADIATION EXPOSURE: 132.5 mGy-cm SEDATION MEDICATIONS: 0.5 mg Versed, 25 mcg fentanyl SEDATION TIME: 20 minutes. IMPRESSION: CT-guided bone marrow aspirate and core biopsy performed without evidence of complications.
--- NOTE | 2018-02-08 13:24 | Discharge Summary ---
Visit Information Visit Dates Admission Date: 01/28/18 Discharge Date: 01/31/18 Hospital Course Course Attending Physician: Scout Hall MD Primary Care Physician: Scout Hall MD Hospital Course: Pt with Esophageal dysmotility Osteoporosis s/p boniva for more than 5 yrs now on vit d and calcium and wt bearing activity, Gastroesophageal reflux disease without esophagitis, Hyperlipidemia, unspecified on diet control does not want statin, Irritable bowel syndrome with both constipation and diarrhea, Vitamin D deficiency, Essential hypertension, Cervical arthritis, Hyperlipidemia, unspecified on diet control does not want statin, Irritable bowel syndrome with both constipation and diarrhea, Lung nodule less than 5 mm non smoker hence prob benign pt wishes clinical follow up, Venous insufficiency (chronic) (peripheral) rt more than left, Hemorrhoids, Primary osteoarthritis of both hips with chronic anemia now comes with Sig symptomatic anemia prob due to Bone marrow dysfunction from myelodysplasia Wt loss chronic with ibs features Chronic constipation hemerrhoids Fatigue Gait imbalance with peripheral neuropathy features with no sig vit D def Previous lung nodule and pelvic gonadal vein congestion, Ct abd and pelvis nil acute Sig 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 SEE NOTE. This diagnosis was given to Dr. Zabala on 02/06/18 at 2:15 pm. NOTE: Non-neoplastic causes of ring sideroblasts, including alcohol, toxins, drugs, zinc administration, copper deficiency and congenital sideroblastic anemia, must be excluded. Recommend correlation with cytogenetics and molecular studies (particularly SF3B1). CBC (01/26/18), by report: HGC: 6.6 g/dL, MCV: 103.5 fL, WBC: 1.9 K/uL, PLT:244 K/uL BONE MARROW BIOPSY: Fragmented, mild hypercellular marrow for age (30-40% cellular). Megakaryocytes are present in decreased number with scattered small forms. The myeloid:erythroid (M:E) ratio is decreased. Erythroid elements exhibit maturation with left shift. Myeloid elements exhibit maturation. Lymphoid aggregates are not seen. Granulomas are not seen. Trabecular bone is unremarkable. Iron stain reveals no stainable iron. IMMUNOSTAINS: CD34 positive blasts are not increased (less than 5% of cellularity). CD71 and MPO confirms the M:E radion of approximately 1:1. BONE MARROW ASPIRATE: The aspirate smear is markedly hypocellular, aspicular and hemodilute. A customer care representative cell count could not be performed due to marked hypocellularity. Erythroid elements show dysplasia. Prussian blue iron stain on dilute smear is inconclusive for storage iron assessment; however, most nucleated RBCs present are ring sideroblasts (>50%). FLOW CYTOMETRY: By report, flow cytometic analysis reveals predominantly right shifted marrow elements suggestive of peripheral blood contamination. Normal number of phenotype myeloblasts with normal myeloid scatter by CD45/SSC. There is a normal CD10/CD13/CD16/CD11b myeloid maturation pattern and all other myeloid markers are normally expressed, hence there is no immunophenotypic evidence of myelodysplasia. No evidence for monoclonal B-cell lymphoproliferative disease. Although no unusual phenotype T cells are identified, surface markers will not routinely detect monoclonal T lymphocytes. This case was reviewed by Dr. Kingsley White of [facility], [address] [place] [address]. 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 Hairston Medications at Discharge Discharge Medications: Continue taking these medications: Losartan Potassium (Losartan Potassium) 50 MG TABLET 1 Tablet ORAL DAILY Qty = 90 Comments: NOT GIVEN IN HOSPITAL Docusate Sodium (Docusate Sodium) 100 MG CAPSULE 1 Capsule ORAL DAILY Comments: NOT GIVEN IN HOSPITAL Sennosides (Senokot) 8.6 MG TABLET 1 Tablet ORAL DAILY Comments: NOT GIVEN IN HOSPITAL Aspirin (Ecotrin*) 325 MG TABLET.DR 1 Tablet ORAL DAILY Comments: NOT GIVEN IN HOSPITAL Polyethylene Glycol 3350 (Polyethylene Glycol 3350) 17 GRAM/DOSE POWDER 17 Gram ORAL as needed for GI Qty = 3162 Comments: Last Taken: 8/8/18 Time: 2:00 PM Ferrous Sulfate (IRON) 325 MG (65 MG IRON) TABLET 1 Tablet ORAL Every other day Comments: NOT GIVEN IN HOSPITAL Acetaminophen (Tylenol) (Unknown Strength) TABLET 650 ORAL EVERY SIX HOURS as needed for PAIN Qty = 30 Comments: NOT GIVEN IN HOSPITAL Copies To: Sagrario GUNDERSON,Yovanny Attending MD Review Statement Documenting Attending: Isabel GUNDERSON,Scout Haskins
== END 2018-01-31 17:23 | DRG 812 ==
LOC: ERH 13:59 → 2NA 16:34 → ERHI 16:34 → ENRESERV 17:55 → ENTRNSPT 18:38 → EDTRNSPT 18:50 → EDTRNSPTSTS 18:50 → 2NA 18:51 → CMPTRNSPT 19:12 → 2NA 01-29 14:59 → ENTRNSPT 01-31 17:03 → EDTRNSPTSTS 01-31 17:10 → EDTRNSPT 01-31 17:10 → 2NA 01-31 17:23 → CMPTRNSPT 01-31 17:27
PROVIDERS: Internal Medicine; Physical Medicine & Rehabilitation; Physician Assistant Medical
PROC: 30233N1 Transfusion of Nonautologous Red Blood Cells into Peripheral Vein, Percutaneous Approach (ICD-10-PCS; 2018-01-28)
PROC: 07DR3ZX Extraction of Iliac Bone Marrow, Percutaneous Approach, Diagnostic (ICD-10-PCS; principal; 2018-01-31)
DX: D46.9 Myelodysplastic syndrome, unspecified (principal); Z68.1 Body mass index [BMI] 19.9 or less, adult; E78.5 Hyperlipidemia, unspecified; G62.9 Polyneuropathy, unspecified; D63.8 Anemia in other chronic diseases classified elsewhere; K21.9 Gastro-esophageal reflux disease without esophagitis; M81.0 Age-related osteoporosis without current pathological fracture; K22.4 Dyskinesia of esophagus; K58.2 Mixed irritable bowel syndrome; I10 Essential (primary) hypertension; E55.9 Vitamin D deficiency, unspecified; R63.4 Abnormal weight loss; R26.89 Other abnormalities of gait and mobility; K64.4 Residual hemorrhoidal skin tags; I87.2 Venous insufficiency (chronic) (peripheral); K64.9 Unspecified hemorrhoids
CPT/HCPCS: 2NASP; 36415; 71045; 74177; 77012; 82436; 83010; 86920; 87389; 88184; 93005; 93010; 99291; J0131; P9016